=== PATIENT | male | born 1990 | race Caucasian/White ===

== ENCOUNTER 2020-07-30 10:25 | Emergency (ER) | payer OTHER ==
[~2020-07-30 10:25] MED LIST: BUSPAR 5MG TABLE5 MG PO; HYDROCHLOROTHIA25 MG PO; ZANTAC150 MG PO; ZOFRAN ODT 4 MG4 MG PO
[2020-07-30] MEDS ORDERED: NAPROSYN500 MG PO (10:50)
== END 2020-07-30 11:09 | disposition home or self-care (01) ==
LOC: ER1 10:25
DX: R20.2 Paresthesia of skin (principal); I10 Essential (primary) hypertension; M06.9 Rheumatoid arthritis, unspecified; Z90.49 Acquired absence of other specified parts of digestive tract; Z79.899 Other long term (current) drug therapy
CPT/HCPCS: 96372; 99283; J1885